=== PATIENT | male | born 1955 | race Caucasian/White ===

== ENCOUNTER 2022-01-20 11:34 | Emergency (ER) | payer MEDICARE ==
[~2022-01-20 11:34] MED LIST: ZANTAC150 MG PO
[2022-01-20 12:50] LABS: HEMATOCRIT 43.6 % (42.0-52.0); MANUAL DIFF REFLEX YES; MEAN CELL VOLUME 92.4 fl (80.0-94.0); MEAN CORPUSCULAR HGB 31.1 pg (27.0-31.0); MEAN CORPUSCULAR HGB CONC 33.7 g/dl (33.0-37.0); MEAN PLATELET VOLUME 10.9 fl (9.6-12.3); PLATELET COUNT AUTOMATED 169 10*3/uL (130-400); RED BLOOD COUNT 4.72 10*6/uL (4.50-5.90); RED CELL DISTRI WIDTH 14.3 % (0-14.5); WHITE BLOOD COUNT 6.1 10*3/uL (4.8-10.8)
[2022-01-20 13:00] LABS: ALKALINE PHOSPHATASE 60 U/L (45-117); BUN 12 mg/dl (7-24); CHLORIDE 103 mmol/L (98-107); CREATININE 1.09 mg/dL (0.70-1.30); POTASSIUM 3.9 mmol/L (3.5-5.1); SGOT/AST 29 IU/L (3-35); SGPT/ALT 29 U/L (12-78); SODIUM 132 mmol/L (136-145); TOTAL PROTEIN 7.9 gm/dL (6.4-8.2)
[2022-01-20 13:11] LABS: ATYPICAL LYMPHS 4 % (0-0); TOTAL CELLS COUNTED 100 #CELLS
[2022-01-20 13:12] LABS: PLATELET SUFFICIENCY NORMAL (NORMAL)
[2022-01-20] MEDS ORDERED: ZITHROMAX250 MG PO (15:04)
== END 2022-01-20 15:19 | disposition home or self-care (01) ==
LOC: ED 11:34
PROVIDERS: Emergency Medicine
DX: U07.1 COVID-19 (principal); J20.9 Acute bronchitis, unspecified

== ENCOUNTER 2023-11-17 14:33 | Emergency (ER) | payer MEDICARE ==
[~2023-11-17] VITALS: Ht 172.7 cm; Wt 79.4 kg
[~2023-11-17 14:33] MED LIST changes: +ZITHROMAX250 MG PO
[2023-11-17 17:07] LABS: HEMATOCRIT 48.3 % (42.0-52.0); MANUAL DIFF REFLEX YES; MEAN CELL VOLUME 97.8 fl (80.0-94.0); MEAN CORPUSCULAR HGB 31.6 pg (27.0-31.0); MEAN CORPUSCULAR HGB CONC 32.3 g/dl (33.0-37.0); MEAN PLATELET VOLUME 9.6 fl (9.6-12.3); PLATELET COUNT AUTOMATED 247 10*3/uL (130-400); RED BLOOD COUNT 4.94 10*6/uL (4.50-5.90); RED CELL DISTRI WIDTH 14.5 % (0-14.5)
[2023-11-17 17:18] LABS: ACT PARTIAL THROMBO TIME 26.2 SECONDS (20.0-32.1)
[2023-11-17 17:38] LABS: BASOPHILS 1 % (0-1); TOTAL CELLS COUNTED 100 #CELLS
[2023-11-17 17:39] LABS: ALKALINE PHOSPHATASE 83 U/L (46-116); BUN 12 mg/dl (9-23); BURR CELLS FEW; CHLORIDE 104 mmol/L (98-107); PLATELET SUFFICIENCY NORMAL (NORMAL); POTASSIUM 3.6 mmol/L (3.4-5.1); SGPT/ALT 19 U/L (5-49); TOTAL PROTEIN 7.9 gm/dL (6.0-8.0)
== END 2023-11-17 19:26 | disposition left against medical advice (07) ==
LOC: ED 14:33
PROVIDERS: Physician Assistant Medical
DX: J18.9 Pneumonia, unspecified organism (principal); J90 Pleural effusion, not elsewhere classified; I10 Essential (primary) hypertension; F17.210 Nicotine dependence, cigarettes, uncomplicated; Z79.2 Long term (current) use of antibiotics; Z53.20 Procedure and treatment not carried out because of patient's decision for unspecified reasons